=== PATIENT | male | born 1960 | race Caucasian/White ===

== ENCOUNTER 2023-03-04 11:11 | Outpatient (CLI) | payer BC, SELFPAY | END 2023-03-04 11:12 | disposition home or self-care (01) | LOC: AMB 03-07 15:20 | PROVIDERS: PCP Family Medicine; Visit Provider Emergency Medicine Emergency Medical Services | DX: S09.90XA Unspecified injury of head, initial encounter (principal); W18.30XA Fall on same level, unspecified, initial encounter; Y92.007 Garden or yard of unspecified non-institutional (private) residence as the place of occurrence of the external cause | CPT/HCPCS: A0425; A0427 ==

== ENCOUNTER 2023-03-04 12:00 | Observation (INO) | payer BC, SELFPAY ==
[2023-03-04] VITALS (22 sets, daily range): BP systolic 121–167; BP diastolic 77–103; PULSE 67–91; RESP 12–24; TEMP 36.1–36.8; O2SAT 94–99; BMI 28.1; BMI 27.3
--- NOTE | 2023-03-04 11:52 | ED_ITS ---
HPI - Fall General Chief Complaint: Fall/Minor Trauma Stated Complaint: Fall History of Present Illness HPI Narrative: This 62-year-old male comes in by ambulance with a trauma team activation. He fell prior to arrival from a ladder. The patient does not remember the events of his fall and had loss of consciousness. Known was at home at the time but this occurred in the last hour or so. The patient was able to get up and ambulate into the house but does not remember the fall or the events surrounding it. There is a 7 ft ladder that was tipped over outside. The patient was cleaning windows when he fell. He has a laceration on the occipital region of his head and an underlying hematoma. He is not on any blood thinners and otherwise is in good health. He reports some headache but does not have any neck pain, chest pain, abdominal pain, or extremity pain except for his right ankle. His right ankle has some swelling but he states that this ankle does not appear normal anyway as he had a calcaneus fracture about 20 years ago. Related Data Home Medications Medication Instructions Recorded Confirmed nicotine (polacrilex) 2 mg gum 2 mg buccal Q8H PRN 03/04/23 03/04/23 Allergies Allergy/AdvReac Type Severity Reaction Status Date / Time No Known Drug Allergies Allergy Verified 03/04/23 11:50 Review of Systems Status of ROS: Reports: 10 or more systems reviewed and unremarkable except as noted in History and below Narrative: Constitutional: No fevers, no weight gain or loss. Eyes: No discharge. No vision changes. HENT: No congestion, no sore throat, no ear pain. Cardiovascular: No chest pain, no palpitations. Respiratory: No shortness of breath, no wheezes, no cough. Gastrointestinal: No abdominal pain, no vomiting, no diarrhea. Genitourinary: No dysuria, no hematuria. Musculoskeletal: Normal range of motion. Right ankle swelling and mild pain. Skin: No rashes, no pruritis. Neurological: No dizziness, weakness, sensory change, speech change. Endo/Heme/Allergies: No bruising or bleeding. No polydipsia. Pysch: no suicidality, no anxiety, no insomnia. All other systems reviewed and are negative. PFSH PFSH Social History Smoking Status: Former smoker Do you use any of these nicotine containing products: Smokeless Tobacco Non-prescribed substance use: denies use Exam Narrative: Exam Narrative: Primary Survey: Vital Signs are within normal limits. Airway: Open. Breathing: Easy. Circulation: no obvious bleeding; normal capillary refill. Disability: GCS is 15. Normal pupillary response and motor movements. Secondary Survey: Head: Occipital scalp laceration with underlying hematoma. The length of this laceration is approximately 2 cm. Neck: No midline tenderness. ROM intact. Chest: Non tender. No external signs of trauma. Abdomen: Non tender. No rebound tenderness. Normal bowel sounds. Pelvis/Genitals: No tenderness to A/P and lateral stress. Extremities: Atraumatic. Back: No midline tenderness. No sign of injury. Primary and Secondary surveys are completed. The patient's GCS is 15. Const: Vital Signs, click to edit/add: Vital Signs - 24 hr 03/04/23 11:48 Temperature 97.0 F L Pulse Rate [Pulse Oximeter] 74 Respiratory Rate 24 Blood Pressure [Ri ght Upper Arm] 165/103 H Pulse Oximetry 94 Oxygen Delivery Me thod Room Air Course Vital Signs Vital signs: Initial Vital Signs Temperature 97.0 F L 03/04/23 11:48 Temperature Source Temporal Artery Scan 03/04/23 11:48 Pulse Rate 74 03/04/23 11:48 Pulse Rhythm Regular 03/04/23 11:48 Respiratory Rate 24 03/04/23 11:48 Blood Pressure 165/103 H 03/04/23 11:48 Blood Pressure Mean 123 H 03/04/23 11:48 Blood Pressure Position Supine 03/04/23 11:48 Pulse Oximetry 94 03/04/23 11:48 Oxygen Delivery Method Room Air 03/04/23 11:48 Vital Signs Temperature 97.0 F L 03/04/23 11:48 Pulse Rate 74 03/04/23 11:48 Respiratory Rate 24 03/04/23 11:48 Blood Pressure 165/103 H 03/04/23 11:48 Pulse Oximetry 94 03/04/23 11:48 Oxygen Delivery Method Room Air 03/04/23 11:48 Temperature 97.0 F L 03/04/23 11:48 Pulse Rate 74 03/04/23 11:48 Respiratory Rate 24 03/04/23 11:48 Blood Pressure 165/103 H 03/04/23 11:48 Pulse Oximetry 94 03/04/23 11:48 Oxygen Delivery Method Room Air 03/04/23 11:48 MDM - Fall MDM Narrative Medical decision making narrative: This patient comes in for evaluation of an injury as described above. A trauma team activation was initiated. The patient does arrive by ambulance with a C- collar in place. CT imaging of the head and C-spine are obtained an x-ray of the right ankle is also ordered. C-spine imaging shows no sign of acute injury so his C-collar was removed. CT scan of the head shows external soft tissue swelling in the left occiput. He has a laceration in this area. There is a contrecoup small subdural, subarachnoid bleed. The patient is not on any anticoagulants. I spoke with the neurosurgeon on-call at [facility] regarding this. His name is Dr. Lainez. He did review the images and stated that the patient could stay here for observation and recommended a CT scan tomorrow morning for further evaluation. I spoke with Dr. Newberry, hospitalist on-call here, who agrees to his admission for this plan to occur. The patient's scalp wound was cleansed. There is no active bleeding at this time. I did use 1% lidocaine with epinephrine for anesthesia and then placed 4 addis to secure the wound. Imaging Data XR R Ankle: Radiologist's impression: Three views of the left ankle were obtained. There is soft tissue swelling medially. There are calcifications off the talus laterally which could be chip fractures. There is also a calcification seen adjacent to the navicular bone medially which could be a chip fracture. There is an abnormal appearance of the of base tibia 5th metatarsal bone the spurring which could be related to old trauma. There is no other definite fracture seen or dislocation. CT scan - head: Radiologist's impression: Minimal mixed subarachnoid and subdural hemorrhage along the right frontal convexity consistent with contrecoup injury with moderate left occipital subgaleal soft tissue hematoma. No evidence of large collection or mass effect at this time. CT Cervical Spine: Radiologist's impression: Moderate degenerative changes of the cervical spine without acute osseous abnormality. Discharge Plan Discharge Clinical Impression: Subdural hemorrhage following injury with concussion, Laceration of scalp Patient Disposition: Admitted As Inpatient Condition: Stable Prescriptions: No Action nicotine (polacrilex) 2 mg gum 2 mg buccal Q8H PRN Follow Up/Referrals: Yasmeen Reynoso DO [Primary Care Provider] -
--- NOTE | 2023-03-04 11:52 | CRLHL7_ITS ---
For Patients: As a result of the Century Cures Act, medical imaging exams and procedure reports are released immediately into your electronic medical record. You may view this report before your referring provider. If you have questions, please contact your health care provider. Indication: Fall, loss of consciousness Technique: Volumetric multidetector CT images of the head were obtained without the administration of low osmolar intravenous contrast. Comparison: None available Findings: There is minimal extra-axial mixed subarachnoid and subdural hemorrhage along the right frontal convexity consistent with a contrecoup injury. No evidence of large mass effecting fluid collection is identified at this time. There is no mass effect or midline shift. There is moderate global cortical atrophy greater than expected for age with ex vacuo dilatation of the lateral ventricles. There are chronic small vessel disease changes in the subcortical and periventricular white matter without lost arguello-white differentiation. The orbits and their contents are grossly within normal limits. There is a large subgaleal soft tissue hematoma along the left occipital bone. The underlying bony calvarium is grossly intact. Incidental note is made of bony remodeling of the sella turcica and effacement of the pituitary gland consistent with sequela of benign intracranial hypertension. The paranasal sinuses are grossly well aerated. The mastoid air cells are well aerated. Impression: Minimal mixed subarachnoid and subdural hemorrhage along the right frontal convexity consistent with contrecoup injury with moderate left occipital subgaleal soft tissue hematoma. No evidence of large collection or mass effect at this time. Findings were discussed with Serge Eaton at 12:45 p.m. 03/04/2023 Please note that all CT scans at this facility use dose modulation, iterative reconstruction, and/or weight-based dosing when appropriate to reduce radiation dose to as low as reasonably achievable. Dictated by Jose Harp MD @ 03/04/2023 12:49:48 PM (Electronically Signed)
--- NOTE | 2023-03-04 11:52 | CRLHL7_ITS ---
For Patients: As a result of the Century Cures Act, medical imaging exams and procedure reports are released immediately into your electronic medical record. You may view this report before your referring provider. If you have questions, please contact your health care provider. Indication: Fall, loss of consciousness Technique: Volumetric multidetector CT images of the cervical spine were obtained without the administration of IV contrast. Comparison: None available. Findings: The cervical vertebral body heights are grossly maintained with minimal endplate Schmorl`s defects. There is straightening of the normal cervical lordosis without evidence of significant spondylolisthesis. There is no displaced fracture or dislocation. There is moderate multilevel degenerative disc disease with disc height loss and marginal osteophyte formation worst at the C6-C7 level. There is moderate facet arthrosis. The paraspinous soft tissues are grossly within normal limits. Impression: Moderate degenerative changes of the cervical spine without acute osseous abnormality. Please note that all CT scans at this facility use dose modulation, iterative reconstruction, and/or weight-based dosing when appropriate to reduce radiation dose to as low as reasonably achievable. Dictated by Jose Harp MD @ 03/04/2023 12:56:40 PM (Electronically Signed)
--- NOTE | 2023-03-04 11:52 | CRLHL7_ITS ---
For Patients: As a result of the Cures Act, medical imaging exams and procedure reports are released immediately into your electronic medical record. You may view this report before your referring provider. If you have questions, please contact your health care provider. INDICATION: Fall. FINDINGS: Three views of the left ankle were obtained. There is soft tissue swelling medially. There are calcifications off the talus laterally which could be chip fractures. There is also a calcification seen adjacent to the navicular bone medially which could be a chip fracture. There is an abnormal appearance of the of base tibia 5th metatarsal bone the spurring which could be related to old trauma. There is no other definite fracture seen or dislocation. Dictated by Heriberto David MD @ 03/04/2023 12:49:10 PM (Electronically Signed)
--- NOTE | 2023-03-04 14:34 | ED.NURSE ---
Danelle to head wound done by . Pt brought to M/S via cart to Rm 255. VSS. Pain controlled at this time. Able to ambulate to bed from hallway, tolerates well. M/S RN at bedside to receive patient.
--- NOTE | 2023-03-04 15:33 | PC.NURSE ---
Pt admit to unit at 1430 from ED for fall, able to take a couple steps to get standing scale weight and sit on bed. Pt states manageable pain to head and R ankle, rating 2/10 currently. Alert and oriented, vitals stable, RA, but HTN of 158/98. P[employer] Supervisor called pt's 'Meri' to update her on pt moving to unit from ED. Danelle intact to pt's back of bed, chux placed on pillow as head lac is still oozing slightly. Pt has call light within reach, able to use appropriately. Awaiting MD admission orders at this time. Report given to oncoming nurse.
[2023-03-04 15:39] LABS: HCO3 VBG 26 mmol/L (21-28); PCO2 VBG 41 mmHG (40-50); PO2 VBG 26.5 mmHG (25-47); pH VBG 7.415 (7.32-7.43)
[2023-03-04 15:44] LABS: Basophils Percent Auto 0.1 % (0.0-3.0); Eosinophils Percent Auto 0.2 % (0.0-7.0); Hematocrit 43.8 % (37.0-53.0); Immature Granulocytes Pct Auto 0.1 %; Lymphocytes Percent Auto 9.9 % (20-44); Mean Corpuscular HGB Conc 32 gm/dL (32-36); Mean Corpuscular Hemoglobin 29 pg (26-34); Mean Corpuscular Volume 91 fL (80-100); Monocytes Percent Auto 5.6 % (0.0-11.0); Neutrophils Percent Auto 84.1 % (42.0-72.0); Platelet Count* 205 K/uL (140-440); RDW Coefficient of Variation % 12.9 % (11.5-15.5); Red Blood Count 4.82 m/uL (4.30-5.90)
[2023-03-04 15:45] LABS: Basophils Absolute Auto 0.01 K/uL (0.00-0.30); Eosinophils Absolute Auto 0.02 K/uL (0.00-0.50); Immature Granulocytes Abs Auto 0.01 K/uL (0.00-0.30)
[2023-03-04 15:47] LABS: Slide Review Reflex No
--- NOTE | 2023-03-04 15:54 | PM.IMHP1 ---
Hospitalist- H&P: HPI History of Present Illness Time Seen by Provider: 15:00 Date Seen: 03/04/23 Chief complaint: Fall from ladder with closed head injury Narrative: Alejo Boles is a 62 year old man in his usual state of health until sometime late this morning he fell off a ladder when trying to do work around the outside of his house. Barely remembers falling. Does not remember getting up from the fall or walking back inside his home. Next thing he remembers, he was in his house, his was not present, his head was aching and bleeding, he called 911. It is unclear when he fell. It is unclear the duration of time that he has amnesia. There is some thought that the time from the incident to the time he called 911 may have been about an hour. EMS found a 7 ft ladder tipped over outside the home. Patient had a laceration on the occipital region of his head with an underlying hematoma. On arrival to our emergency department he complained of headache only. Denies any focal motor neurologic deficits. Denies any other pain including neck, chest, abdomen, back, upper extremity, lower extremity. Has chronic right foot and ankle deformity and discomfort subsequent to hold fracture he sustained in the right ankle and calcaneus, 1992, status post fall. Review of Systems Status of ROS: Reports: 10 or more systems reviewed and unremarkable except as noted in History and below Narrative: Denies any other recent trauma or injury. No recent travel. No recent febrile illness or any other type of illness. Has been feeling well and doing well. Has been eating and drinking without any difficulties. Occasionally has 1 or 2 drinks of alcohol, once per week at the most, none recently. Denies any other street or recreational drug use. No angina, anginal equivalent, syncope, nausea, vomiting, abdominal pain, cough, dyspnea, palpitations or chest fluttering, edema. Denies constipation or diarrhea. Denies blood loss of any sort. Denies dysuria, urgency, frequency, hematuria. In the course of my evaluating him as I have him sit up so I can examine him he notes a sense of lightheadedness. Denies vertigo, near syncope, nausea, vomiting. [facility] Medical History (Updated 03/04/23 @ 16:25 by Fletcher Amos MD) Nicotine dependence in remission ?F17.201 - Nicotine dependence, unspecified, in remission (ICD-10) Right calcaneal fracture malunion ?S92.001P - Unspecified fracture of right calcaneus, subsequent encounter for fracture with malunion (ICD-10) History of fracture of right ankle ?Z87.81 - Personal history of (healed) traumatic fracture (ICD-10) Social History Narrative: Lives in private residence with his , Meri. Retired. Full resuscitation in event of cardiopulmonary demise. Designates as POA should that be warranted. What is your current living situation?: I presently have a place to live Problems where you live: no known problems Problems where you live details: denies problems In the past 12 months, utilities in danger of being shut off: no In past 12 months, lack of transportation kept you from medical appts, meetings, work, or getting things needed for daily living: no In the past 12 mos, have been you worried that your food would run out before you had money to buy more?: never true In the past 12 mos, the food you bought just didn't last and you didn't have money to buy more?: never true Highest level of school completed/degree received: Master's degree Smoking Status: Never smoker Do you use any of these nicotine containing products: Smokeless Tobacco How often do you have a drink containing alcohol: 2-4 times a month Alcohol type details: pt states consuming alcohol about once a week AUDIT-C Alcohol total score: 2 Non-prescribed substance use: denies use Caffeine: Yes (pop QD) How often does anyone, including family, friends and others, physically hurt you: never How often does anyone, including family, friends and others, insult or talk down to you: never How often does anyone, including family, friends and others, threaten you with harm: never How often does anyone, including family, friends and others, scream or curse at you: never service: No Meds Home Medications and Allergies Home Medications Medication Instructions Recorded Confirmed Type nicotine (polacrilex) 2 mg gum 2 mg buccal Q8H PRN 03/04/23 03/04/23 History Allergies Allergy/AdvReac Type Severity Reaction Status Date / Time No Known Drug Allergies Allergy Verified 03/04/23 11:50 Exam Narrative: Exam Narrative: I examined patient in his hospital room. Appears comfortable and in no acute distress. Vision and hearing are grossly normal. Alert and oriented to self, place, time, situation. Amnesia of events surrounding his fall. Friendly, articulate, cooperative. Mood and affect are congruent. Able to engage in meaningful dialogue. Able to follow one-step, 2 step, and 3 step commands. Hematoma in his occiput with staple sutures in place with surrounding minimal amount of blood. No other scalp contusions or lacerations or hematomas. Pupils equally round and reactive to light and accommodation. Conjugate gaze. No nystagmus. No icterus or conjunctival injection. Midline nasal septum. Dentition in fair repair. Moist buccal mucosa. Neck is supple. Midline trachea. No JVD or carotid bruits. No head and neck lymphadenopathy. Lungs are clear to auscultation without wheezing, rhonchi, or rales. Chest wall excursions are full. No CVA tenderness. Heart tones with regular rhythm, normal S1-S2, without murmur, gallop, or rub. PMI not laterally displaced. Abdomen with active bowel sounds, soft, nontender. No organomegaly or masses. No rebound or guarding. Extremities without edema. Capillary refill less than 3 seconds in upper and lower extremities. Chronic right foot and ankle deformity with no pain to palpation or range of motion. Full range of motion of upper and lower extremities. No focal motor neurologic deficits. Symmetric rapid alternating movements in upper and lower extremities, symmetric strength in upper and lower extremities. Const: Vital Signs, click to edit/add: Vital Signs - 24 hr 03/04/23 11:48 03/04/23 11:49 03/04/23 11:51 Temperature 97.0 F L Pulse Rate 74 72 Pulse Rate [Pulse Oximeter] 74 Respiratory Rate 24 16 14 Blood Pressure 165/103 H 148/92 H Blood Pressure [Ri ght Arm] Blood Pressure [Ri ght Upper Arm] 165/103 H Pulse Oximetry 94 97 96 Oxygen Delivery Me thod Room Air 03/04/23 12:11 03/04/23 12:12 03/04/23 12:21 Temperature Pulse Rate 71 72 67 Pulse Rate [Pulse Oximeter] Respiratory Rate 12 14 14 Blood Pressure 157/92 H 155/92 H 157/89 H Blood Pressure [Ri ght Arm] Blood Pressure [Ri ght Upper Arm] Pulse Oximetry 96 95 98 Oxygen Delivery Me thod 03/04/23 12:31 03/04/23 12:41 03/04/23 12:51 Temperature Pulse Rate 70 75 78 Pulse Rate [Pulse Oximeter] Respiratory Rate 14 12 12 Blood Pressure 150/89 H 151/82 H 145/77 H Blood Pressure [Ri ght Arm] Blood Pressure [Ri ght Upper Arm] Pulse Oximetry 97 96 97 Oxygen Delivery Me thod 03/04/23 13:02 03/04/23 13:12 03/04/23 13:22 Temperature Pulse Rate 78 73 76 Pulse Rate [Pulse Oximeter] Respiratory Rate 14 12 14 Blood Pressure 167/96 H 150/84 H 153/89 H Blood Pressure [Ri ght Arm] Blood Pressure [Ri ght Upper Arm] Pulse Oximetry 97 99 97 Oxygen Delivery Me thod 03/04/23 13:31 03/04/23 13:41 03/04/23 13:51 Temperature Pulse Rate 74 91 83 Pulse Rate [Pulse Oximeter] Respiratory Rate 14 12 12 Blood Pressure 149/87 H 145/87 H 151/85 H Blood Pressure [Ri ght Arm] Blood Pressure [Ri ght Upper Arm] Pulse Oximetry 98 99 98 Oxygen Delivery Me thod 03/04/23 14:02 03/04/23 14:12 03/04/23 15:20 Temperature 98 F Pulse Rate 81 79 Pulse Rate [Pulse Oximeter] 83 Respiratory Rate 14 12 16 Blood Pressure 138/83 139/80 Blood Pressure [Ri ght Arm] 159/98 H Blood Pressure [Ri ght Upper Arm] Pulse Oximetry 97 97 98 Oxygen Delivery Me thod Room Air 03/04/23 15:20 Temperature Pulse Rate Pulse Rate [Pulse Oximeter] Respiratory Rate 16 Blood Pressure Blood Pressure [Ri ght Arm] Blood Pressure [Ri ght Upper Arm] Pulse Oximetry 98 Oxygen Delivery Me thod Room Air Documenting provider has reviewed patient's vital signs: yes Hospitalist - H&P: Result Labs Labs: Short CBC 03/04/23 Range/Units 15:33 WBC 8.80 (4.50-11.00) K/uL Hgb 14.0 (13.5-17.5) gm/dL Hct 43.8 (37.0-53.0) % Plt Count 205 (140-440) K/uL Imaging CT scan - head: Attestation: I have reviewed the pertinent imaging results. Radiologist's impression: Findings: There is minimal extra-axial mixed subarachnoid and subdural hemorrhage along the right frontal convexity consistent with a contrecoup injury. No evidence of large mass effecting fluid collection is identified at this time. There is no mass effect or midline shift. There is moderate global cortical atrophy greater than expected for age with ex vacuo dilatation of the lateral ventricles. There are chronic small vessel disease changes in the subcortical and periventricular white matter without lost arguello-white differentiation. The orbits and their contents are grossly within normal limits. There is a large subgaleal soft tissue hematoma along the left occipital bone. The underlying bony calvarium is grossly intact. Incidental note is made of bony remodeling of the sella turcica and effacement of the pituitary gland consistent with sequela of benign intracranial hypertension. The paranasal sinuses are grossly well aerated. The mastoid air cells are well aerated. Impression: Minimal mixed subarachnoid and subdural hemorrhage along the right frontal convexity consistent with contrecoup injury with moderate left occipital subgaleal soft tissue hematoma. No evidence of large collection or mass effect at this time. CT scan - cervical spine: Attestation: I have reviewed the pertinent imaging results. Radiologist's impression: Findings: The cervical vertebral body heights are grossly maintained with minimal endplate Schmorl`s defects. There is straightening of the normal cervical lordosis without evidence of significant spondylolisthesis. There is no displaced fracture or dislocation. There is moderate multilevel degenerative disc disease with disc height loss and marginal osteophyte formation worst at the C6-C7 level. There is moderate facet arthrosis. The paraspinous soft tissues are grossly within normal limits. Impression: Moderate degenerative changes of the cervical spine without acute osseous abnormality. Left ankle x-ray: Attestation: I have reviewed the pertinent imaging results. Radiologist's impression: FINDINGS: Three views of the left ankle were obtained. There is soft tissue swelling medially. There are calcifications off the talus laterally which could be chip fractures. There is also a calcification seen adjacent to the navicular bone medially which could be a chip fracture. There is an abnormal appearance of the of base tibia 5th metatarsal bone the spurring which could be related to old trauma. There is no other definite fracture seen or dislocation. Assessment and Plan Assessment and plan (1) Fall from ladder: Problem comment: 03/04/2023, unwitnessed, closed head injury, occipital scalp laceration, small subarachnoid hemorrhage and subdural hematoma. Status: Acute (2) Closed head injury with loss of consciousness of unknown duration: Problem comment: Estimate of duration of amnesia is about 1 hour from time of event, but it was unwitnessed. Status: Acute (3) Subdural hemorrhage following injury with concussion: Problem comment: -03/04/2023: CT scan of head demonstrated minimal mixed subarachnoid and subdural hemorrhage along the right frontal convexity consistent with contrecoup injury with moderate left occipital subgaleal soft tissue hematoma. No evidence of large collection or mass effect at this time. - Dr. Eaton, [facility], spoke with Dr. Lainez, neurosurgeon at [facility], who recommended admission to hospital for observation, repeat CT scan in the morning, may be discharged home if condition remains stable but call and speak with neurosurgeon again if condition becomes unstable. - neuro checks, monitor vitals, IV fluids, orthostatic blood pressure and pulse, physical therapy and occupational therapy to evaluate and treat. Status: Acute (4) Laceration of scalp: Problem comment: 03/04/2023: Occipital scalp laceration status post fall from ladder, unwitnessed, status post cleansing and repair with addis, consider staple removal in 7-10 days. Status: Acute (5) Nicotine dependence in remission: Problem comment: - Quit chewing tobacco May 2022, chewing nicotine gum since. - continue with nicotine gum p.r.n. Status: Acute Plan 1. Reviewed impression with patient. 2. Answered his questions. 3. Patient agreeable with above stated plans and recommendations.
[2023-03-04 15:55] LABS: Albumin* 4.3 g/dL (3.3-5.0); Chloride* 106 mmol/L (96-114)
[2023-03-04 15:56] LABS: Potassium* 4.1 mmol/L (3.6-5.1); Sodium* 138 mmol/L (135-149)
[2023-03-04 15:58] LABS: Creatinine* 0.8 mg/dL (0.5-1.5); Est. Creatinine Clearance* 73.15; Estimated Glomerular Filt Rate 99 ml/min
[2023-03-04 15:59] LABS: Alanine Aminotransferase* 22 U/L (4-50); Alkaline Phosphatase* 51 U/L (40-150); Anion Gap 8 mEq/L (7-15); Aspartate Amino Transferase* 35 U/L (12-35); Blood Urea Nitrogen* 15 mg/dL (7-30); Calcium* 8.6 mg/dL (8.4-10.6); Carbon Dioxide* 24 mmol/L (20-32); Creatine Kinase* 259 U/L (54-186); Glucose* 113 mg/dL (60-115); Total Protein* 7.4 g/dL (6.0-8.3)
[2023-03-04 16:00] LABS: Ethanol* < 0.01 % (0.01-0.03)
[2023-03-04 16:02] LABS: C Reactive Protein* 1.1 mg/dL (0.5-1.0)
[2023-03-04 16:28] LABS: Appearance Urine Clear (Clear); Bilirubin Urine Negative (Negative); Blood Urine 1+ (Negative); Color Urine Yellow (Yellow); Glucose Urine Negative (Negative); Ketones Urine 1+ (Negative); Leukocyte Esterase Urine Negative (Negative); Nitrite Urine Negative (Negative); Protein Urine Trace (Negative); Specific Gravity Urine 1.025 (1.000-1.030); Urobilinogen Urine 0.2 (0.2-1.0)
[2023-03-04 16:36] LABS: Amphetamine Screen Urine Negative (Negative); Barbiturate Screen Urine Negative (Negative); Benzodiazepines Screen Urine Negative (Negative); Cannabinoid Screen Urine Negative (Negative); Cocaine Screen Urine Negative (Negative); Methadone Screen Urine Negative (Negative); Methamphetamines Screen Urine Negative (Negative); Opiate Screen Urine Negative (Negative); Oxycodone Screen Urine Negative (Negative); Phencyclidine Screen Urine Negative (Negative); Tricyclic Antidepressant Urine Negative (Negative)
[2023-03-04] MEDS: 0.9 % SODIUM CHLORIDE 1000 ml 1,000 ML 125 ML IV (16:36)
--- NOTE | 2023-03-04 18:02 | PC.NURSE ---
Shift Summary 15-19: Patient pleasant and cooperative. Up with SBA and gait belt, patient states he is aware gait is off, verbalized some discomfort in ankle contributing to change in gait, some swaying noted however not grabbing furniture for support. Reports dizziness when changing position. Back of head gently cleansed with warm water to remove dried blood, patient tolerated well. Has four addis to back left side of head. Rates pain a 2/10 to head. Neuros baseline and WNL. Tolerating regular diet, denies nausea, able to feed self. at bedside for visit. computer assistant shows NSR. Swelling to right ankle.
[2023-03-04] MEDS: ACETAMINOPHEN 325 MG TABLET 650 MG PO (19:05)
[2023-03-04 19:36] LABS: WBC Urine 0-2 (0-5)
[2023-03-05 03:00] VITALS: BP 130/84; PULSE 79; PULSE 81; RESP 18; TEMP 36.6; O2SAT 96
[2023-03-05 06:00] VITALS: BP 130/84; BP 140/90; BP 140/94; PULSE 79; PULSE 84; PULSE 96
[2023-03-05] MEDS: ACETAMINOPHEN 325 MG TABLET 650 MG PO ×2 (06:07→11:09)
[2023-03-05 06:19] LABS: Hematocrit 40.7 % (37.0-53.0); Mean Corpuscular HGB Conc 32 gm/dL (32-36); Mean Corpuscular Hemoglobin 29 pg (26-34); Mean Corpuscular Volume 91 fL (80-100); Platelet Count* 193 K/uL (140-440); Red Blood Count 4.46 m/uL (4.30-5.90); White Blood Count* 6.07 K/uL (4.50-11.00)
[2023-03-05 06:44] LABS: Slide Review Reflex No
[2023-03-05 07:00] VITALS: PULSE 76; RESP 12; O2SAT 96
--- NOTE | 2023-03-05 07:00 | CRLHL7_ITS ---
For Patients: As a result of the Century Cures Act, medical imaging exams and procedure reports are released immediately into your electronic medical record. You may view this report before your referring provider. If you have questions, please contact your health care provider. INDICATION: Follow-up contrecoup injury. TECHNIQUE: CT of the head without contrast. Coronal and sagittal reformats are included. COMPARISON: Head CT from 03/04/2023. FINDINGS: No significant change in the amount/conspicuity of traumatic subarachnoid/subdural hemorrhage along the right anterior inferior frontal pole. Subdural component measures up to 6 millimeters in diameter. No significant mass effect. No sites of intracranial hemorrhage elsewhere within the brain. No hydrocephalus. No new midline shift. Partially empty sella. No acute osseous abnormalities. Mastoid air cells and paranasal sinuses are clear. A large parieto-occipital subgaleal scalp hematoma measuring up to 14 millimeters in diameter. IMPRESSION: 1. Stable posttraumatic extra-axial hemorrhage along the right anterior inferior frontal pole, compatible sequela of contrecoup injury. No significant mass effect. No new sites of intracranial hemorrhage or other significant interval changes. Please note that all CT scans at this facility use dose modulation, iterative reconstruction, and/or weight-based dosing when appropriate to reduce radiation dose to as low as reasonably achievable. Dictated by Randy Carl MD @ 03/05/2023 7:46:35 AM (Electronically Signed)
--- NOTE | 2023-03-05 07:07 | PC.NURSE ---
Pt pleasant and cooperative. VSS He is up Independantly to bathroom. Wound to posterior head with 4 addis has had moderate amt of serosanginous drainage. neuros WNL
[2023-03-05 07:24] VITALS: BP 144/88; PULSE 76; RESP 12; TEMP 36.6; O2SAT 96
[2023-03-05 07:37] VITALS: PULSE 71
--- NOTE | 2023-03-05 10:35 | CRLHL7_ITS ---
For Patients: As a result of the Cures Act, medical imaging exams and procedure reports are released immediately into your electronic medical record. You may view this report before your referring provider. If you have questions, please contact your health care provider. Indication: S/P FALL, PAIN 5TH METATARSAL. H/O OLD FX Technique: Right foot 3 views Comparison: None Findings: Intact calcaneus. No joint effusion. Chronic deformity of the proximal and mid 5th metatarsal diaphysis with hypertrophic change. No acute fracture. Mild degenerative changes at the 1st MTP joint. Impression: Severe chronic deformity of the 5th metatarsal. No acute fracture. Dictated by Jimenez Farooq MD @ 03/05/2023 12:15:14 PM (Electronically Signed)
[2023-03-05 11:14] VITALS: BP 151/85; PULSE 64; RESP 16; TEMP 36.6; O2SAT 97
--- NOTE | 2023-03-05 13:39 | PC.NURSE ---
Discharge: Patient pleasant and cooperative. Patient vitally stable, lungs clear, BS WNL, IV removed,catheter intact. Patient independent in room. Patient rates right ankle pain 4/10, tylenol given. Patient signed belongings sheet and discharge form. Patient had no further questions regarding discharge. Patient left the floor to home by foot with at 1335.
--- NOTE | 2023-03-05 14:19 | P.DS_ITS ---
DS: Providers Provider Date Seen: 03/05/23 Date of admission: 03/04/23 14:23 Primary care physician: Yasmeen Reynoso DO Admitting Clinician: Rosalee Newberry MD Consults: 03/04/23 15:30 Consult to Occupational Therapy [CONS] Routine Comment: Reason(s) for OT Consult:: Evaluate and Treat Any Restrictions?:: No Restrictions Consult to Physical Therapy [CONS] Routine Comment: Reason(s) for PT Consult:: Evaluate Ambulation Any Restrictions?:: No Restrictions 03/05/23 09:54 Consult to Physician [CONS] Routine Comment: Consulting Provider: Bowen Fuller Has provider been notified: Yes Attending Physician on discharge: Izzy Myers [facility]: 03/05/23 DS: Diagnosis Discharge Diagnosis (1) Subdural hemorrhage following injury with concussion: Status: Acute Problem details: -03/04/2023: CT scan of head demonstrated minimal mixed subarachnoid and subdural hemorrhage along the right frontal convexity consistent with contrecoup injury with moderate left occipital subgaleal soft tissue hematoma. No evidence of large collection or mass effect at this time. - Dr. Eaton, [facility] Emergency Department, spoke with Dr. Lainez, neurosurgeon at [facility], who recommended admission to hospital for observation, repeat CT scan in the morning, may be discharged home if condition remains stable but call and speak with neurosurgeon again if condition becomes unstable. - neuro checks, monitor vitals, IV fluids, orthostatic blood pressure and pulse, physical therapy and occupational therapy to evaluate and treat. - repeat CT head 03/05 shows stable hemorrhage, unchanged. Neuro checks remained unchanged. On day of discharge, patient complained of mild dizziness without headache. - discussed discharge cares including monitoring for acute change in mental status, increasing headache without resolve, both requiring immediate re- evaluation at the emergency department (2) Laceration of scalp: Status: Acute Problem details: 03/04/2023: Occipital scalp laceration status post fall from ladder, unwitnessed, status post cleansing and repair with addis. Mild drainage otherwise wound edges appear appropriately approximated. Wound cares discussed. -recommend staple removal 5-7 days with PCP (3) Fall from ladder: Status: Acute Problem details: -03/04/2023, unwitnessed, closed head injury, occipital scalp laceration, small subarachnoid hemorrhage and subdural hematoma. Management as above (4) Closed head injury with loss of consciousness of unknown duration: Status: Acute Problem details: -Estimate of duration of amnesia is about 1 hour from time of event, but it was unwitnessed -discussed concussion management including avoiding vigorous activity, prolonged mental activity, reading, screen time. Encouraged rest. Tylenol as needed for headaches. (5) Right foot pain: Status: Acute Problem details: -acute, with history of previous fracture/injury, following fall from ladder -plain film right foot following plain film of ankle shows no evidence of acute fracture -symptomatic cares, ice, tylenol, elevation DS: Summary Hospital Course Hospital Course: [age] year old male without significant past medical history was admitted to the medical floor for observation following a fall from a 7 foot ladder resulting in a subarachnoid and subdural hemorrhage, laceration of the scalp, and loss of consciousness. Course of care and details as noted above. Remainder of chronic medical comorbidities were monitored and managed with home medications. Status at Discharge Overall status at discharge: patient is not back to baseline Time Spent with Patient Time attestation: Total time spent providing and/or coordinating discharge services: Total time spent caring for the patient today was 45 minutes. This includes time spent for the visit reviewing the chart, time spent during the visit, time spent after the visit and documentation and planning in coordination of care. Exam Narrative: Exam Narrative: PHYSICAL EXAM General: Pleasant, conversant, NAD HEENT: Posterior scalp with laceration, closed with addis, wound edges appropriately approximated, mild serosanguineous drainage. EOMI, DEVYN Cardiovascular: RRR, S1S2. No pitting edema Pulmonary: CTA bilaterally without rhonchi, rales, expiratory wheezes. No dyspnea Abdominal: Soft, nondistended, NTTP Neurological: Alert, answering questions appropriately, cranial nerves intact, no focal findings Extremities: Right foot with mild swelling lateral aspect, no ecchymosis. Mild tenderness along 5th metatarsal. AROMI. Neurovascularly intact Skin: Warm, dry. Const: Vital Signs, click to edit/add: Vital Signs - 24 hr 03/04/23 15:20 03/04/23 15:20 03/04/23 15:56 Temperature 98 F 98.3 F Pulse Rate Pulse Rate [Pulse Oximeter] 83 88 Pulse Rate [orthos tatic lying Right] Pulse Rate [orthos tatic sitting Righ t] Pulse Rate [orthos tatic standing Rig ht] Respiratory Rate 16 16 14 Blood Pressure [Ri ght Arm] 159/98 H 156/89 H Blood Pressure [or thostatic lying Ri ght Arm] Blood Pressure [or thostatic sitting Right Arm] Blood Pressure [or thostatic standing Right Arm] Pulse Oximetry 98 98 98 Oxygen Delivery Me thod Room Air Room Air Room Air 03/04/23 15:56 03/04/23 16:49 03/04/23 19:00 Temperature 98.2 F Pulse Rate 84 Pulse Rate [Pulse Oximeter] 87 Pulse Rate [orthos tatic lying Right] Pulse Rate [orthos tatic sitting Righ t] Pulse Rate [orthos tatic standing Rig ht] Respiratory Rate 14 16 Blood Pressure [Ri ght Arm] 142/80 H Blood Pressure [or thostatic lying Ri ght Arm] Blood Pressure [or thostatic sitting Right Arm] Blood Pressure [or thostatic standing Right Arm] Pulse Oximetry 98 96 Oxygen Delivery Or thod Room Air Room Air 03/04/23 23:00 03/04/23 23:00 03/05/23 03:00 Temperature 98 F Pulse Rate 81 Pulse Rate [Pulse Oximeter] 79 Pulse Rate [orthos tatic lying Right] Pulse Rate [orthos tatic sitting Righ t] Pulse Rate [orthos tatic standing Rig ht] Respiratory Rate 16 Blood Pressure [Ri ght Arm] 121/83 Blood Pressure [or thostatic lying Ri ght Arm] Blood Pressure [or thostatic sitting Right Arm] Blood Pressure [or thostatic standing Right Arm] Pulse Oximetry 96 96 Oxygen Delivery Me thod Room Air Room Air 03/05/23 03:00 03/05/23 06:00 03/05/23 07:00 Temperature 98 F Pulse Rate Pulse Rate [Pulse Oximeter] 79 76 Pulse Rate [orthos tatic lying Right] 79 Pulse Rate [orthos tatic sitting Righ t] 84 Pulse Rate [orthos tatic standing Rig ht] 96 Respiratory Rate 18 12 Blood Pressure [Ri ght Arm] 130/84 Blood Pressure [or thostatic lying Ri ght Arm] 130/84 Blood Pressure [or thostatic sitting Right Arm] 140/90 H Blood Pressure [or thostatic standing Right Arm] 140/94 H Pulse Oximetry 96 Oxygen Delivery Me thod Room Air 03/05/23 07:00 03/05/23 07:24 03/05/23 07:37 Temperature 98 F Pulse Rate 71 Pulse Rate [Pulse Oximeter] 76 Pulse Rate [orthos tatic lying Right] Pulse Rate [orthos tatic sitting Righ t] Pulse Rate [orthos tatic standing Rig ht] Respiratory Rate 12 12 Blood Pressure [Ri ght Arm] 144/88 H Blood Pressure [or thostatic lying Ri ght Arm] Blood Pressure [or thostatic sitting Right Arm] Blood Pressure [or thostatic standing Right Arm] Pulse Oximetry 96 96 Oxygen Delivery Me thod Room Air Room Air 03/05/23 11:14 Temperature 97.8 F Pulse Rate Pulse Rate [Pulse Oximeter] 64 Pulse Rate [orthos tatic lying Right] Pulse Rate [orthos tatic sitting Righ t] Pulse Rate [orthos tatic standing Rig ht] Respiratory Rate 16 Blood Pressure [Ri ght Arm] 151/85 H Blood Pressure [or thostatic lying Ri ght Arm] Blood Pressure [or thostatic sitting Right Arm] Blood Pressure [or thostatic standing Right Arm] Pulse Oximetry 97 Oxygen Delivery Me thod Room Air DS: Data Data Completed and Pending Labs on day of discharge: Labs from last 24 hours 03/05/23 03/04/23 03/04/23 05:44 16:18 15:33 WBC 6.07 8.80 RBC 4.46 4.82 Hgb 13.0 L 14.0 Hct 40.7 43.8 MCV 91 91 MCH 29 29 MCHC 32 32 RDW Coeff of Jenny 12.9 Plt Count 193 205 Neut % (Auto) 84.1 H Lymph % (Auto) 9.9 L [place] % (Auto) 5.6 Eos % (Auto) 0.2 Baso % (Auto) 0.1 Neut # (Auto) 7.40 H Lymph # (Auto) 0.90 [place] # (Auto) 0.50 Eos # (Auto) 0.02 Baso # (Auto) 0.01 Abs Immat Gran (auto) 0.01 Imm/Tot Granulo (auto) 0.1 VBG pH 7.415 VBG pCO2 41 VBG pO2 26.5 VBG HCO3 26 Sodium 138 Potassium 4.1 Chloride 106 Carbon Dioxide 24 Anion Gap 8 BUN 15 Creatinine 0.8 Estimated Creat Clear 73.15 Estimated GFR 99 Glucose 113 Lactate 1.0 Calcium 8.6 Total Bilirubin 1.0 AST 35 ALT 22 Alkaline Phosphatase 51 Total Creatine Kinase 259 H C-Reactive Protein 1.1 H Total Protein 7.4 Albumin 4.3 Urine Color Yellow Urine Appearance Clear Urine pH 7.0 Ur Specific [place] 1.025 Urine Protein Trace A Urine Glucose (UA) Negative Urine Ketones 1+ A Urine Blood 1+ A Urine Nitrite Negative Urine Bilirubin Negative Urine Urobilinogen 0.2 Ur Leukocyte Esterase Negative Urine RBC 10-25 A Urine WBC 0-2 Ur Squamous Epith Cells None Urine Bacteria None Urine Opiates Screen Negative Ur Oxycodone Screen Negative Urine Methadone Screen Negative Ur Propoxyphene Screen Negative Ur Barbiturates Screen Negative U Tricyclic Antidepress Negative Ur Phencyclidine Scrn Negative Ur Amphetamines Screen Negative U Methamphetamines Scrn Negative U Benzodiazepines Scrn Negative Urine Cocaine Screen Negative U Marijuana (THC) Screen Negative Ur Drug Screen Comment See Note Ethyl Alcohol < 0.01 L Discharge Plan Discharge Disposition: Home, Self-Care Date of Admission: 03/04/23 14:23 Attending Provider on Discharge: Izzy Myers Consulting Providers: Bowen Fuller Primary Care Provider: Yasmeen Reynoso Condition: Stable Anticipated Discharge Date/Time: 03/05/23 12:41 Discharge Medications: Continued nicotine (polacrilex) 2 mg gum 2 mg buccal Q8H PRN Discharge Orders: Discharge Order (Routine); Ordered 03/05/23 Ordered By: Izzy Myers Patient Education: Concussion (DC), Intracranial Hematoma (GEN), Head Laceration (GEN) Additional Instructions: You have a bleed in the subarachnoid and subdural areas of your brain. You have also been diagnosed with a concussion. You need to rest and avoid vigorous activity. Avoid prolonged mental activity, screen time, reading. You may take Tylenol for any headaches or pain. You may use ice as needed for comfort as well. If your family member notices any mental status changes for you, acting unusually, not making sense, you should be re-evaluated in the emergency department immediately. If you have new or worsening headache without resolve with ice or Tylenol, you should be re-evaluated in the emergency department. The sutures in her scalp need to be removed by your PCP in 5-7 days. Keep this area clean and dry. Do not soak under water. Avoid hair care products or use of a comb/brash at this area. Activity Level: No strenuous activity Discharge Diet: Regular Follow Up Appointments: Yasmeen Reynoso DO [Primary Care Provider] - 03/07/23 1:50 pm (Follow-up fall with subarachnoid and subdural hematoma, concussion, scalp laceration with addis by the end of the week) Forms: [facility] Info Instructions
== END 2023-03-05 13:35 | disposition home or self-care (01) ==
LOC: ED 14:01 → MEDSURG 14:23
PROVIDERS: Internal Medicine; Admitting Provider Family Medicine; Emergency Provider Emergency Medicine Emergency Medical Services; PCP Family Medicine; Visit Provider Family Medicine
DX: S06.6XAA Traumatic subarachnoid hemorrhage with loss of consciousness status unknown, initial encounter (principal); S06.5XAA Traumatic subdural hemorrhage with loss of consciousness status unknown, initial encounter; S06.9X9A Unspecified intracranial injury with loss of consciousness of unspecified duration, initial encounter; S01.01XA Laceration without foreign body of scalp, initial encounter; R22.0 Localized swelling, mass and lump, head; W11.XXXA Fall on and from ladder, initial encounter; M79.671 Pain in right foot; R51.9 Headache, unspecified; F17.201 Nicotine dependence, unspecified, in remission; M21.6X1 Other acquired deformities of right foot; R42 Dizziness and giddiness; Z87.81 Personal history of (healed) traumatic fracture
CPT/HCPCS: 12001; 36415; 70450; 72125; 73610; 73630; 80053; 80306; 81001; 82077; 82550; 82803; 83605; 85025; 85027; 86140; 96360; 96361; 97116; 97162; 97165; 97535; 99284; 99285; 99291; G0378; A9270; G0390; J7030

== ENCOUNTER 2023-04-23 15:30 | Outpatient (RCR) | payer BC, SELFPAY | END 2023-07-03 14:40 | disposition home or self-care (01) | PROVIDERS: PCP Family Medicine; Visit Provider Family Medicine | DX: S06.0X9S Concussion with loss of consciousness of unspecified duration, sequela (principal); R26.81 Unsteadiness on feet; H81.11 Benign paroxysmal vertigo, right ear; Z51.89 Encounter for other specified aftercare | CPT/HCPCS: 97110; 97162 ==

== ENCOUNTER 2024-10-20 13:44 | Emergency (ER) | payer MEDICARE, BC, SELFPAY ==
[2024-10-20 13:46] VITALS: BP 172/87; PULSE 84; RESP 18; TEMP 36.4; O2SAT 99; BMI 28.9
--- OUTSIDE RECORDS SUMMARY | 2024-10-20 13:47 | XMS_ITS | Clinical Summary ---
Author Organization [facility] Address [address] [place] [id number] Care Team Providers Care Surgical Scrub Technician Name Role Phone GelyYasmeen zhang Gretel Primary Care Provider Allergies Active Allergy Reactions Criticality Noted Date Comments Fluoxetine Emotional Disturbance 02/03/2011 Uncontrollable sobbing Trazodone 10/27/2010 Caused agitation and sleep disturbance. Medications vilazodone (VIIBRYD) 10 mg tabletIndication s:Anxiety with depression Take 1 Tablet (10 mg) by mouth once daily. 7 Tablet 01/02/2024 Active vilazodone 20 mg tabletIndication s:Anxiety with depression Take 1 Tablet (20 mg) by mouth once daily. 30 Tablet 01/02/2024 Active hydrOXYzine HCL (ATARAX) 25 mg tabletIndication s:Anxiety Take 25 mg by mouth every 8 hours if needed. 30 Tablet 01/04/2024 Active busPIRone (BUSPAR) 10 mg tabletIndication s:Anxiety with depression Take 1 Tablet (10 mg) by mouth two times daily. 180 Tablet 3 01/22/2024 Active Active Problems Problem Noted Date Diagnosed Date Depression with anxiety 01/28/2011 Anxiety state, unspecified 10/27/2010 Insomnia, unspecified 10/27/2010 Thumb pain 10/27/2010 Elevated blood pressure read ing without diagnosis of hypertension 10/27/2010 Immunizations Immunization Administration Dates Next Due COVID-19 vaccine ([employer] 30mcg/0.3mL) P F, MDV 04/23/2021 Influenza A (H1N1), Inactivated (Age >=3 Years) 05/31/2009 Influenza, IIV3 (Age >=3 years) 05/31/2009 Influenza, IIV4 02/08/2023,04/17/2020 Tdap 12/16/2021,10/27/2010 Zoster (Shingrix-RZV, recombinant) 02/27/2022, Social History Tobacco Use Types Packs/Day Years Used Date Smoking Tobacco: Never Smokeless Tobacco: Former Tobacco Cessation:Counseling Given: Yes Alcohol Use Standard Drinks/Week Comments Yes 0 (1 standard drink = 0.6 oz pur e alcohol) Social Connections Answer Date Recorded Do you often feel lonely or isolated from those around you? 0 05/09/2023 Financial Resource Strain Answer Date R ecorded Difficulty of Paying Living Expenses 3 05/09/2023 Difficulty of Paying Living Expenses Not on file 05/09/2023 Food Insecurity Answer Date Recorded Do you worry your food will run out before you are able to buy more? 1 05/09/2023 Transportation Needs Answer Date Record ed Does lack of transportation keep you from medica l appointments? 1 05/09/2023 Does lack of transportation keep you from work, meetings or getting things that you need? 1 05/09/2023 Housing Stability Answer Date Recorded What is your housing situation today? 1 05/09/2023 Utilities Answer Date Recorded Do you have trouble paying f or utilities (for example, heat, electricity, water, phone)? 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 Gender Identity Not on file Sexual Orientation Not on file Obstetrics History Last Filed Vital Signs Vital Sign Reading Time Taken Comments Blood Pressure 143/88 01/02/2024 9:38 AM CDT Pulse 72 01/02/2024 9:38 AM CDT Temperature 36.4 C (97.6 F) 11/15/2022 1:27 PM CDT Respiratory Rate - - Oxygen Saturation 98% 01/02/2024 9:38 AM CDT Inhaled Oxygen Concentration - - Weight 85.7 kg (189 lb) 01/02/2024 9:38 AM CDT Height - - Body Mass Index - - Plan of Treatment Upcoming Encounters Date Type Department Care Team (Late st Contact Info) Description 10/29/2024 9:00 AM CDT Office Visit [facility] [address] [facility] [address] Yasmeen Reynoso DO [address] [place] [address] Health Maintenance Due Date Last Done Comments Depression screening for age 12+ 1971 HIV for age 15-65 1974 BMI (ht and wt on same day) for age 18+ 1977 Hepatitis C screening for age 18-79 1977 Colonoscopy through age 75 2004 Pneumococcal series for age 50+ (1 of 1 - PCV) 2009 Lipids for age 45-75 10/29/2015 10/28/2010, 10/27/2010 (Postponed) COVID-19 vaccine series (2023- season) 2024 03/01/2023, 02/27/2022, 08/29/2021, Additional history exists Influenza Vaccine (Season Ended) 2025 02/08/2023, 04/17/2020, 05/31/2009 Tetanus booster 12/17/2031 12/16/2021, 06/2010 (Postponed), 10/27/2010 RSV vaccine for adults or (1 - 1-dose 75+ series) 2034 Tdap Completed 12/16/2021, 10/27/2010 Zoster (shingles) series for age 50+ Completed 02/27/2022, 12/16/2021 Hepatitis B series for 19+ Aged Out N o longer eligible based on patient's age to complete this topic Procedures Procedure Name Priority Date/Time Associated Diagnosis Comments LIPID PANEL Routine 10/28/2010 9:01 AM CDT Routine physical examination from Last 3 Months or Most Recently Relevant to Health Maintenance Results * (ABNORMAL) LIPID PANEL (10/28/2010 9:01 AM CDT) CHOLESTEROL,TOTAL 220(H) 110 - 199 mg/dL [facility] TRIGLYCERIDES 64 <150 mg/dL [facility] HDL CHOLESTEROL 71 >40 mg/dL [facility] CHOL/HDL RATIO 3.10 <4.51 [facility] LDL CHOLESTEROL 136(H) <131 mg/dL [facility] PATIENT STATUS Fasting [facility] Blood specimen (specimen) BLOOD SPECIMEN / Unknown 10/28/2010 9:01 AM CDT 10/28/2010 8:57 AM CDT us Sunil Reyes MD CHEMISTRY Final Result [facility] [address] [place] [address] from Last 3 Months or Most Recently Relevant to Health Maintenance Insurance [employer] [place]ER [id number] Care Teams Surgical Scrub Technician Relationship Specialty Start Date End Date Yasmeen Reynoso DO [address] [place] [address] PCP - General Family Practice 11/15/22
--- NOTE | 2024-10-20 14:07 | CRLHL7_ITS ---
For Patients: As a result of the Cures Act, medical imaging exams and procedure reports are released immediately into your electronic medical record. You may view this report before your referring provider. If you have questions, please contact your health care provider. INDICATION: Saw injury TECHNIQUE: Finger radiograph 3 views right 1st COMPARISON: None FINDINGS: Bone: No acute fractures or aggressive bone lesions are identified. Joint: The metacarpophalangeal and interphalangeal joints are normal in appearance. Soft tissue: Soft tissue laceration is present along the palmar aspect of the distal 1st digit. There is a punctate density in the soft tissues of this region, only seen on 1 of the lateral views which may represent an artifact rather than a foreign body. IMPRESSION: 1. No acute osseous injuries or abnormalities are noted. Dictated by Stephon Lai MD @ 10/20/2024 3:02:32 PM Dictated by: Stephon Lai MD @ 10/20/2024 15:02:39 (Electronically Signed)
--- NOTE | 2024-10-20 14:12 | ED.GENADULT ---
HPI - General Adult General Chief complaint: Laceration/Wound Stated complaint: Cut RT thumb Time Seen by Provider: 10/20/24 13:46 History of Present Illness HPI narrative: Patient is a 64 year white male cut his right thumb on a table saw. It is the medial aspect of his entire length of his thumb from about the base of the thumb up to the base of his nail. Good hemostasis noted he is unsure of his last tetanus. We will check on this. He is otherwise uninjured. He is able to move his thumb. It bled a little bit at the scene. Related Data Home Medications ?Medication ?Instructions ?Recorded ?Confirmed mirtazapine 7.5 mg tablet 3.75 - 7.5 mg PO QPM PRN 10/20/24 10/20/24 Previous Rx's ?Medication ?Instructions ?Recorded cephalexin 500 mg tablet 500 mg PO QID #20 tabs 10/20/24 Allergies Allergy/AdvReac Type Severity Reaction Status Date / Time No Known Drug Allergies Allergy Verified 10/20/24 13:50 Review of Systems Status of ROS: Reports: 6 or more systems reviewed and unremarkable except as noted in History and below [facility] Medical History Nicotine dependence in remission ?F17.201 - Nicotine dependence, unspecified, in remission (ICD-10) Right calcaneal fracture malunion ?S92.001P - Unspecified fracture of right calcaneus, subsequent encounter for fracture with malunion (ICD-10) History of fracture of right ankle ?Z87.81 - Personal history of (healed) traumatic fracture (ICD-10) Social History Narrative: Lives in private residence with his , Meri. Retired. Full resuscitation in event of cardiopulmonary demise. Designates as POA should that be warranted. What is your current living situation?: I presently have a place to live Problems where you live: no known problems Problems where you live details: denies problems In the past 12 months, utilities in danger of being shut off: no In past 12 months, lack of transportation kept you from medical appts, meetings, work, or getting things needed for daily living: no In the past 12 mos, have been you worried that your food would run out before you had money to buy more?: never true In the past 12 mos, the food you bought just didn't last and you didn't have money to buy more?: never true Highest level of school completed/degree received: Master's degree Smoking Status: Never smoker Do you use any of these nicotine containing products: Smokeless Tobacco How often do you have a drink containing alcohol: 2-4 times a month Alcohol type details: pt states consuming alcohol about once a week AUDIT-C Alcohol total score: 2 Non-prescribed substance use: denies use Caffeine: Yes (pop QD) How often does anyone, including family, friends and others, physically hurt you: never How often does anyone, including family, friends and others, insult or talk down to you: never How often does anyone, including family, friends and others, threaten you with harm: never How often does anyone, including family, friends and others, scream or curse at you: never service: No Exam Narrative: Exam Narrative: Objective: Pressure is elevated otherwise unremarkable for vital signs Alert orient x3 His right hand shows a macerated laceration through the medial aspect of the base of the thumb to the about the nail bed does not involve the nailbed extends a little bit over the volar surface of the thumb to about midline. Range of motion is normal the thumb as well as good distal cap refill. Const: Vital Signs, click to edit/add: Vital Signs - 24 hr 10/20/24 13:46 Temperature 97.5 F L Pulse Rate [Right Pulse Oximeter] 84 Respiratory Rate 18 Blood Pressure [Ri ght Upper Arm] 172/87 H Pulse Oximetry 99 Oxygen Delivery Me thod Room Air Course Vital Signs Vital signs: Initial Vital Signs Temperature 97.5 F L 10/20/24 13:46 Temperature Source Temporal Artery Scan 10/20/24 13:46 Pulse Rate 84 10/20/24 13:46 Pulse Rhythm Regular 10/20/24 13:46 Pulse Strength 3+ Normal 10/20/24 13:46 Respiratory Rate 18 10/20/24 13:46 Blood Pressure 172/87 H 10/20/24 13:46 Blood Pressure Mean 115 H 10/20/24 13:46 Blood Pressure Position Sitting 10/20/24 13:46 Pulse Oximetry 99 10/20/24 13:46 Oxygen Delivery Method Room Air 10/20/24 13:46 Vital Signs Temperature 97.5 F L 10/20/24 13:46 Pulse Rate 84 10/20/24 13:46 Respiratory Rate 18 10/20/24 13:46 Blood Pressure 172/87 H 10/20/24 13:46 Pulse Oximetry 99 10/20/24 13:46 Oxygen Delivery Method Room Air 10/20/24 13:46 Temperature 97.5 F L 10/20/24 13:46 Pulse Rate 84 10/20/24 13:46 Respiratory Rate 18 10/20/24 13:46 Blood Pressure 172/87 H 10/20/24 13:46 Pulse Oximetry 99 10/20/24 13:46 Oxygen Delivery Method Room Air 10/20/24 13:46 Medications Administered Medications: Discontinued Medications Generic Name Dose Route Start Last Admin Trade Name Freq PRN Reason Stop Dose Admin Cephalexin HCl 500 mg 10/20/24 14:06 10/20/24 14:22 Cephalexin 500 Mg Capsule PO 10/20/24 14:07 500 mg ONCE ONE Administration Medical Decision Making [facility] Narrative Medical decision making narrative: [age] year white male with uncertain tetanus status presents with a macerated says table saw injury to his thumb. Will get an x-ray of his thumb for completeness will check on his tetanus status given Keflex orally and start that at home 500 q.i.d. x5 days. Procedure: After sterile scrub and irrigation the wound was injected 1% lidocaine for anesthesia patient tolerated this well 3-0 simple ruptured Ethilon sutures were placed with good skin approximation good hemostasis. Because of the location of the wound was right along the digital artery I did not see any arterial bleeding I he had good cap refill and good flexion extension of his IP and MCP joint after repair and good cap refill I could not detect any vascular injury. X-ray is pending as mention patient is given oral Keflex and will check on his tetanus status. Addendum 2:22 p.m. I do not see any x-ray by my video editing internship independent interpretation of his thumb x-ray of foreign body or bony injury. He will be discharged home he is up-to-date on tetanus as of 2021. Recheck in 3 days for reassessment with primary care for wound check, and get sutures removed in 7 days. Discharge Plan Discharge Clinical Impression: Laceration of thumb Patient Disposition: Home, Self-Care Condition: Improved Additional Instructions: Keep covered for 24 hours then may soak in bathe normally, watch for redness or infection, Keflex 500 q.i.d. x5 days, Tylenol okay to use as needed. Recommend recheck for suture removal in 7 days but would recommend wound recheck in about 3 days with primary care. Activity Level: Light activity Discharge Diet: Regular Prescriptions: New cephalexin 500 mg tablet 500 mg PO QID Qty: 20 0RF No Action mirtazapine 7.5 mg tablet 3.75 - 7.5 mg PO QPM PRN Follow Up/Referrals: Yasmeen Reynoso DO [Primary Care Provider, Family Practice] Stand Alone Forms: [employer] Info Instructions
[2024-10-20] MEDS: cephALEXin 500 MG CAPSULE PO (14:22)
== END 2024-10-20 14:35 | disposition home or self-care (01) ==
LOC: ED 14:30
PROVIDERS: Emergency Provider Family Medicine; PCP Family Medicine
DX: S61.011A Laceration without foreign body of right thumb without damage to nail, initial encounter (principal); W27.0XXA Contact with workbench tool, initial encounter; Z23 Encounter for immunization
CPT/HCPCS: 12001; 73140; 90471; 99284; A9270